=== PATIENT | female | born 1950 | race Caucasian/White ===

== ENCOUNTER 2016-09-24 23:21 | Emergency (ER) | payer BC ==
[2016-09-24 23:31] VITALS: BP 149/88; PULSE 96; TEMP 98; BMI 33.0
[2016-09-24] MEDS ORDERED: DIPHTH,PERTUSS(ACELL),TET 0.5 ML DISP.SYRIN IM ONE (23:47)
--- NOTE | 2016-09-24 23:47 | PDOC ---
History of Present Illness - General Chief Complaint: Redness To Affected Area Stated Complaint: LT 1ST TOE INJURY Time Seen by Provider: 09/24/16 23:30 History Source: Patient Exam Limitations: No Limitations - History of Present Illness Initial Comments: 09/24/16 23:48 This is a 65-year-old female who comes in complaining of glass in her toe. Patient said that she broke a glass and spent stepped on a little tiny piece and it went into her toe. Patient said this happened over 24 hours ago. Patient did soak it in hopes that would come out but it did not come out so she comes in for evaluation. PAST MEDICAL HISTORY: no significant history PAST SURGICAL HISTORY: no significant history FAMILY HISTORY: no pertinant history SOCIAL HISTORY: Pt lives with family and is employed. MEDICATIONS: reviewed ALLERGIES: As per nursing notes Review of Systems General: No fevers or chills, no weakness, no weight loss HEENT: No change in vision. No sore throat,. No ear pain CardioVascular: No chest pain or shortness of breath Respiratory:No cough, or wheezing. Gastrointestinal: no nausea, vomitting, diarrhea or constipation, No rectal bleeding Genitourinary: No dysuria, hematuria, or frequency Musculoskeletal: No joint or muscle pain or swelling Neurologic: No headache, vertigo, dizziness or loss of consciousness Psychiatric: nor depression Skin: No rashes or easy bruising, glass in total Endocrine: no increased thirst or abnormal weight change Allergic: no skin or latex allergy All other systems reviewed and normal GENERAL: The patient is awake, alert, and fully oriented, in no acute distress. HEAD: Normal with no signs of trauma. EYES: Pupils equal, round and reactive to light, extraocular movements intact, sclera anicteric, conjunctiva clear. EXTREMITIES: Left toe plantar surface there is a very small laceration with no foreign body visible. NEUROLOGICAL: Normal speech, normal gait. PSYCH: Normal mood, normal affect. SKIN: Warm, Dry, normal turgor, no rashes or lesions noted. Procedure note: Toe was cleaned with Betadine Toe was anesthetized with lidocaine no epinephrine approximately 1 mL Toe was tourniquet it to stop bleeding so I could have a cleaned field Laceration was extended with a #11 blade and a very small piece of glass was visible and removed. Area was examined for any additional pieces of glass in there were none visible. Pressure was applied to the toe to stop bleeding Bacitracin and a sterile dressing were applied over the wound. Patient tolerated well Patient given a tetanus shot Past History - Past Medical History Allergies/Adverse Reactions: Allergies Allergy/AdvReac Type Severity Reaction Status Date / Time No Known Allergies Allergy Verified 05/30/14 13:26 Home Medications: Ambulatory Orders Tamoxifen Citrate 10 mg PO DAILY 09/24/16 Anemia: No Asthma: No Cancer: Yes (RIGHT BREAST) Cardiac Disorders: No CVA: No COPD: No CHF: No Dementia: No Diabetes: No GI Disorders: No Disorders: No HTN: No Hypercholesterolemia: No Liver Disease: No Seizures: No Thyroid Disease: No - Surgical History Abdominal Surgery: No Appendectomy: No Cardiac Surgery: No Cholecystectomy: No Lung Surgery: No Neurologic Surgery: No Orthopedic Surgery: No - Psycho/Social/Smoking Cessation Hx Anxiety: No Suicidal Ideation: No Smoking History: Never smoked Have you smoked in the past 12 months: No Hx Alcohol Use: Yes ([employer]ASS WINE) Substance Use Type: Alcohol Hx Substance Use Treatment: No *DC/Admit/Observation/Transfer Diagnosis at time of Disposition: Laceration of left great toe with foreign body present Qualifiers: Encounter type: initial encounter Damage to nail status: unspecified Qualified Code(s): S91.122A - Laceration with foreign body of left great toe without damage to nail, initial encounter - Discharge Dispostion Disposition: HOME Condition at time of disposition: Stable Admit: No - Referrals Referrals: Marilyn Patricio MD [Primary Care Provider] - - Patient Instructions Additional Instructions: Remove the dressing tomorrow and U can clean the toe with a little peroxide reapply bacitracin and just a regular Band-Aid. Keep the area clean until it is closed. Return to the emergency department immediately with ANY new, persistent or worsening symptoms. Continue any medications as previously prescribed by your physician. You should follow up with your primary doctor as soon as possible regarding today's emergency department visit. . Please make sure your doctor reviews the results of your emergency evaluation. Thank you for coming to the Emergency Department today for your care. It was a pleasure to see you today. Please note that your evaluation is INCOMPLETE until you follow-up with your doctor.
== END 2016-09-24 23:54 | disposition home or self-care (01) ==
LOC: FER 23:21
PROC: 0HCNXZZ Extirpation of Matter from Left Foot Skin, External Approach (ICD-10-PCS; principal; 2016-09-24)
PROC: 3E0234Z Introduction of Serum, Toxoid and Vaccine into Muscle, Percutaneous Approach (ICD-10-PCS; 2016-09-24)
DX: S91.122A Laceration with foreign body of left great toe without damage to nail, initial encounter (principal); W25.XXXA Contact with sharp glass, initial encounter; Y93.89 Activity, other specified; Y92.9 Unspecified place or not applicable
CPT/HCPCS: 90715; 99281-25